=== PATIENT | female | born 1975 | race Caucasian/White ===

== ENCOUNTER → 2020-03-26 09:02 | Outpatient (CLI) | payer OTHER, SELFPAY ==
--- NOTE | 2020-03-26 | DI.MRI.S_ITS ---
PROCEDURE: MR KNEE RT WO CON INDICATIONS: Pain in right knee TECHNIQUE: Noncontrast sagittal PD fast spin echo and T2 fast spin echo with fat saturation, sagittal 3-D FLASH with fat saturation; coronal T1 spin echo and PD fast spin echo with fat saturation, and axial PD fast spin echo with fat saturation through the knee. COMPARISON: [facility] [place], CR, XR KNEE ARTHRITIC SERIES BI, 03/12/2020, 16:42. [facility] Outside Film, CR, XR KNEE 3 VIEWS RIGHT, 01/21/2020, 14:27. [facility] Outside Film, CR, XR KNEE 3 VIEWS RIGHT, 01/15/2020, 22:57. FINDINGS: Image quality: Excellent. Menisci: The medial and lateral menisci demonstrate normal morphology and internal signal. The meniscal root ligaments appear intact. Cruciate ligaments: The anterior and posterior cruciate ligaments appear intact. Medial structures: The medial collateral ligament appears intact. The posterior oblique ligament, semimembranosus tendon insertions, oblique popliteal ligament, and meniscocapsular junction appear intact. Visualized portions of the pes anserinus tendons appear normal. No abnormal bursal fluid. Lateral structures: The lateral collateral ligament, long and short heads of the biceps femoris tendon appear intact. The popliteus tendon appears normal; the popliteofibular ligament appears intact. The posterosuperior and anteroinferior popliteomeniscal fascicles appear intact. The arcuate and fabellofibular ligaments appear intact, on either side of the lateral inferior geniculate artery. Iliotibial band appears normal. Anterior structures: The quadriceps and patellar tendons appear intact. There is mild lateral subluxation of the patella. No edema in the infrapatellar fat pad. No secondary signs of transient patellar dislocation. No femoral trochlear dysplasia or ventral trochlear prominence. Bones and cartilage: No bone marrow contusions or fractures. There is thinning and fissuring of the patellar and medial femoral condyle articular cartilage. There is an approximately 50% thickness focal articular cartilage defect at the apex of the patella. Small area of reactive subchondral edema noted in the apex of the patella deep to the articular cartilage defect. The cartilage of the medial lateral femorotibial compartment appears normal in thickness. Joint space: There is a large joint effusion. No popliteal cyst. Normal appearing synovial plicae are incidentally noted. IMPRESSION: 1. No evidence of ligament or meniscus tear. 2. Degenerative changes involving the patellar and medial femoral condyle articular cartilage with focal articular cartilage defect at the patellar apex. 3. Mild lateral subluxation of the patella without signs of patellar maltracking or transient lateral dislocation. 4. Large joint effusion. Dictated by: Janet Houston MD, PhD on 03/26/2020 at 12:49 Approved by: Janet Houston MD, PhD on 03/27/2020 at 15:06
== END ==
PROVIDERS: PCP Internal Medicine; Referring Provider Orthopaedic Surgery; Visit Provider Orthopaedic Surgery
DX: M25.561 Pain in right knee (principal); M25.461 Effusion, right knee
CPT/HCPCS: 73721

== ENCOUNTER → 2020-04-15 08:16 | Outpatient (CLI) | payer OTHER, SELFPAY ==
[2020-04-15 09:57] LABS: Add Manual Diff / Slide Review NO; Basophils Absolute Auto 0 /uL (0-100); Eosinophils Absolute Auto 0 /uL (0-450); Eosinophils Percent Auto 0.8 % (2-4); Hematocrit 32.6 % (36-46); Hemoglobin 10.6 g/dL (12.0-16.0); Lymphocytes Absolute Auto 1300 /uL (1100-4500); Lymphocytes Percent Auto 37.6 % (25-40); Mean Corpuscular HGB Conc 32.6 % (30-36); Mean Corpuscular Hemoglobin 25.5 PG (26-34); Mean Corpuscular Volume 78.3 fL (80-100); Monocytes Absolute Auto 300 /uL (0-900); Neutrophils Absolute Auto 1800 /uL (1500-7000); Neutrophils Percent Auto 52.6 % (50-75); Platelet Count 218 X10^3/uL (150-400); Red Blood Cell Count 4.16 X10^6/uL (4.0-5.2); Red Cell Distribution Width 15.7 % (11.6-14.8); White Blood Cell Count 3.3 X10^3/uL (4.5-11.0)
[2020-04-15 10:53] LABS: Alanine Aminotransferase 14 IU/L (<35); Albumin 4.1 g/dL (3.5-5.0); Albumin Globulin Ratio 1.6 (1.0-2.8); Alkaline Phosphatase 54 U/L (38-126); Aspartate Aminotransferase 28 IU/L (14-36); BUN Creatinine Ratio 7.8 (6-22); Bilirubin Total 0.1 mg/dL (0.2-1.3); Blood Urea Nitrogen 5 mg/dL (7-17); Calcium 8.9 mg/dL (8.4-10.2); Carbon Dioxide 30 mmol/L (22-32); Chloride 103 mmol/L (98-107); Cholesterol 146 mg/dL (140-199); Estimated Glomerular Filt Rate > 60.0 mL/min (>60); Globulin 2.6 g/dL (1.7-4.1); Glucose 87 mg/dL (70-100); HDL Cholesterol 32 mg/dL (40-60); HEMOLYSIS < 15 (0-50); LDL Cholesterol Calculated 83 mg/dL (<100); Potassium 4.1 mmol/L (3.4-5.1); Sodium 135 mmol/L (137-145); Total Protein 6.7 g/dL (6.3-8.2); Triglycerides 154 mg/dL (35-150)
[2020-04-15 11:10] LABS: Erythrocyte Sedimentation Rate 6 MM/HR (0-20)
[2020-04-15 11:18] LABS: C-Reactive Protein Quant < 0.5 mg/dL (<1.0); Rheumatoid Factor < 8.6 IU/mL (<12.0)
[2020-04-15 11:21] LABS: TSH w/ Reflex to FT4 1.42 uIU/mL (0.47-4.68)
[2020-04-16 17:57] LABS: HEMOLYSIS < 15 (0-50); Iron 25 ug/dL (37-170)
[2020-04-16 18:08] LABS: Percent Iron Saturation 6 % (15-50); Total Iron Binding Capacity 390 ug/dL (265-497); Transferrin 277 mg/dL (206-381)
[2020-04-17 14:58] LABS: ANA Screen, IFA Negative (.)
== END ==
PROVIDERS: PCP Internal Medicine; Referring Provider Internal Medicine; Visit Provider Internal Medicine
DX: G43.709 Chronic migraine without aura, not intractable, without status migrainosus (principal); M06.9 Rheumatoid arthritis, unspecified; R32 Unspecified urinary incontinence; Z13.1 Encounter for screening for diabetes mellitus; Z13.220 Encounter for screening for lipoid disorders; Z13.6 Encounter for screening for cardiovascular disorders; D64.9 Anemia, unspecified
CPT/HCPCS: 36415; 80053; 80061; 83540; 83550; 84443; 85025; 85651; 86038; 86140; 86430

== ENCOUNTER → 2020-06-05 11:37 | Outpatient (CLI) | payer OTHER, SELFPAY ==
--- NOTE | 2020-06-05 11:40 | DI.MG.S_ITS ---
BILATERAL DIGITAL SCREENING MAMMOGRAM 3D/2D WITH CAD: 06/05/2020 CLINICAL: Routine screening. Comparison is made to exams dated: 09/20/2013 mammogram and 07/17/2012 mammogram - [facility]. The tissue of both breasts is heterogeneously dense. This may lower the sensitivity of mammography. Current study was also evaluated with a Computer Aided Detection (CAD) system. There are grouped fine calcifications in the left breast anterior depth lateral region seen on the craniocaudal view only. No other significant masses, calcifications, or other findings are seen in either breast. IMPRESSION: INCOMPLETE: NEEDS ADDITIONAL IMAGING EVALUATION The grouped fine calcifications in the left breast are indeterminate. Spot magnification views as well as additional views with possible ultrasound are recommended. This exam was interpreted at Station ID: [id number]. NOTE: For mammograms, a report in lay terms will be sent to the patient. Approximately 15% of breast malignancies will not be visualized mammographically. In the management of a palpable breast mass, a negative mammogram must not discourage biopsy of a clinically suspicious lesion. Electronically Signed By: Iraj Roland acr/:06/05/2020 13:53:32 letter sent: Additional Imaging Needed ACR BI-RADS Category 0: Incomplete 3340F
== END ==
PROVIDERS: PCP Internal Medicine; Referring Provider Internal Medicine; Visit Provider Internal Medicine
DX: Z12.31 Encounter for screening mammogram for malignant neoplasm of breast (principal)
CPT/HCPCS: 77063; 77067

== ENCOUNTER → 2020-06-20 08:16 | Outpatient (CLI) | payer OTHER, SELFPAY ==
--- NOTE | 2020-06-20 | DI.MG.S_ITS ---
UNILATERAL LEFT DIGITAL DIAGNOSTIC MAMMOGRAM 3D/2D WITH ADDITIONAL VIEWS: 06/20/2020 CLINICAL: Additional evaluation requested from prior study. Comparison is made to exams dated: 06/05/2020 mammogram - [facility], 09/11/2015 ultrasound, 09/20/2013 mammogram, and 07/17/2012 mammogram - [facility]. The tissue of left breast is heterogeneously dense. This may lower the sensitivity of mammography. The previously described grouped fine calcifications in the left breast anterior depth lateral region seen on the craniocaudal view only are no longer seen and not confirmed on today's additional views. This likely represented artifact. No other significant masses or calcifications are seen in the breast. IMPRESSION: BENIGN There is no mammographic evidence of malignancy. A 1 year screening mammogram is recommended. Additionally, patient has an elevated lifetime risk for breast cancer of greater than 20%. Recommend consideration for screening breast MRI as an adjunct to screening mammography. Findings and recommendations were conveyed to the patient during today's evaluation. This exam was interpreted at Station ID: [id number]. NOTE: For mammograms, a report in lay terms will be sent to the patient. Approximately 15% of breast malignancies will not be visualized mammographically. In the management of a palpable breast mass, a negative mammogram must not discourage biopsy of a clinically suspicious lesion. Electronically Signed By: Rito Fontana M.D. aty/:06/20/2020 10:33:38 letter sent: Normal Exam ACR BI-RADS Category 2: Benign Finding(s) 3342F
--- NOTE | 2020-06-20 08:17 | DI.MRI.S_ITS ---
PROCEDURE: MR SHOULDER LT WO/W CON INDICATIONS: Mass high in the left axilla suspect intramuscular mass TECHNIQUE: Noncontrast oblique coronal T1 spin echo and T2 fast spin echo with fat saturation, oblique sagittal T1 spin echo and T2 fast spin echo with fat saturation, axial T1 spin echo and T2 fast spin echo with fat saturation through the shoulder. Post-contrast oblique coronal, oblique sagittal, and axial T1 spin echo with fat saturation through the shoulder. COMPARISON: None. FINDINGS: Image quality: Excellent. Rotator cuff: There is mild supraspinatus and infraspinatus tendinosis. The teres minor and subscapularis tendons are intact. There is no significant rotator cuff muscle atrophy. Bones and bursae: No acute trabecular bone injury is seen. No suspicious osseous enhancement or intraosseous lesion is seen. Mild acromioclavicular degenerative changes are present. There is trace subacromial/subdeltoid bursal fluid. No significant glenohumeral joint effusion is present. Capsule and soft tissues: No displaced labral tear is seen. There is mild tendinosis of the intra-articular portion of the biceps long head tendon. There is mild partial effacement of the fat in the rotator interval. There is mild thickening of the anterior band of the inferior glenohumeral ligament. A few normal-appearing lymph nodes are seen in the left axilla. No suspicious enhancing soft tissue mass is identified. IMPRESSION: 1. No suspicious enhancing soft tissue or osseous mass is seen in the shoulder. 2. Mild supraspinatus and infraspinatus tendinosis. 3. Mild tendinosis of the biceps long head tendon. 4. Mild acromioclavicular joint osteoarthrosis. 5. Small nonspecific subacromial/subdeltoid bursal effusion or bursitis. 6. Partial effacement of the rotator interval fat and mild thickening of the inferior glenohumeral ligament are nonspecific, but can be seen in the setting of the clinical syndrome of adhesive capsulitis. Dictated by: Milan Walters M.D. on 06/20/2020 at 9:25 Approved by: Milan Walters M.D. on 06/20/2020 at 9:36
== END ==
PROVIDERS: PCP Internal Medicine; Referring Provider Specialist; Visit Provider Specialist
DX: R22.32 Localized swelling, mass and lump, left upper limb (principal); M19.012 Primary osteoarthritis, left shoulder; R92.8 Other abnormal and inconclusive findings on diagnostic imaging of breast; R92.1 Mammographic calcification found on diagnostic imaging of breast
CPT/HCPCS: 73223; 77065; G0279

== ENCOUNTER → 2020-07-02 11:09 | Outpatient (CLI) | payer OTHER, SELFPAY ==
[2020-07-02 12:14] LABS: Hematocrit 35.3 % (36-46); Hemoglobin 11.4 g/dL (12.0-16.0); Mean Corpuscular HGB Conc 32.4 % (30-36); Mean Corpuscular Hemoglobin 25.4 PG (26-34); Mean Corpuscular Volume 78.6 fL (80-100); Platelet Count 253 X10^3/uL (150-400); Red Blood Cell Count 4.49 X10^6/uL (4.0-5.2); Red Cell Distribution Width 16.3 % (11.6-14.8); White Blood Cell Count 5.3 X10^3/uL (4.5-11.0)
[2020-07-02 12:35] LABS: HEMOLYSIS < 15 (0-50); Iron 46 ug/dL (37-170)
[2020-07-02 12:51] LABS: Percent Iron Saturation 12 % (15-50); Total Iron Binding Capacity 396 ug/dL (265-497); Transferrin 296 mg/dL (206-381)
[2020-07-02 12:54] LABS: Free T4, Direct Thyroxine 0.94 ng/dL (0.78-2.19); Prolactin 9.8 ng/mL (3.0-18.6)
[2020-07-02 13:08] LABS: Thyroid Stimulating Hormone 1.29 uIU/mL (0.47-4.68)
[2020-07-02 13:11] LABS: Ferritin 7 ng/mL (6-137)
[2020-07-02 13:26] LABS: Vitamin B12 728 pg/mL (239-931)
[2020-07-02 15:06] LABS: Bacteria Urine None Seen; RBC Urine None Seen (0-5/HPF); WBC Urine None Seen (0-5/HPF)
[2020-07-02 16:11] LABS: Appearance Urine UA CLEAR; Bilirubin Urine UA NEGATIVE (NEGATIVE); Glucose Urine UA NEGATIVE (Negative); Ketones Urine UA NEGATIVE (NEGATIVE); Leukocyte Esterase Urine UA NEGATIVE (NEGATIVE); Nitrite Urine UA NEGATIVE (Negative); Occult Blood Urine UA NEGATIVE (Negative); Protein Urine UA NEGATIVE (Negative); Specific Gravity Urine UA <=1.005 (1.000-1.035); Urobilinogen Urine UA 0.2 E.U./dL (0.2)
[2020-07-02 17:14] LABS: pH Urine UA 6.5 (4.5-8.0)
[2020-07-02 17:15] LABS: Color Urine UA Straw; Culture Indicated Urine Cult Not Indicated; Squamous Epithelial Cell Urine 0-1 /HPF (0-5/HPF)
== END ==
PROVIDERS: Obstetrics & Gynecology; PCP Nurse Practitioner Family; Referring Provider Nurse Practitioner Family; Visit Provider Nurse Practitioner Family
DX: D50.9 Iron deficiency anemia, unspecified (principal); R53.83 Other fatigue; R10.2 Pelvic and perineal pain; R10.9 Unspecified abdominal pain; N64.52 Nipple discharge; R30.0 Dysuria
CPT/HCPCS: 36415; 81001; 82607; 82728; 83540; 83550; 84146; 84439; 84443; 85027

== ENCOUNTER → 2020-07-24 08:20 | Outpatient (CLI) | payer OTHER, SELFPAY ==
--- NOTE | 2020-07-24 08:21 | DI.US.S_ITS ---
PROCEDURE: US PELVIC COMPLETE INDICATIONS: PELVIC AND PERINEAL PAIN TECHNIQUE: Real-time scanning was performed of the pelvic organs, with image documentation. Additional endovaginal scanning was necessary due to incomplete visualization of the adnexal and endometrial structures by transabdominal scanning. COMPARISON: None. FINDINGS: Uterus: Uterus is normal in size at 7.9 x 5.8 x 4.9 cm. Few incidental myometrial cysts noted measuring less than 3 mm. The endometrium measures 4.6 mm in combined thickness. Small nabothian cysts noted in the cervix measures 6 mm. Ovaries: Both ovaries appropriate in size vascularity without evidence of torsion. On the left, there is a thick-walled septated cyst measuring overall 1.5 x 1.6 x 1.4 cm. No mural nodule Other: No pathologic free abdominal or pelvic fluid. Small little physiologic fluid noted in the left adnexa. IMPRESSION: 1. Small thick-walled septated cyst noted in the left ovary. Consider six-month follow-up to assure resolution. Dictated by: Zeb Macias M.D. on 07/24/2020 at 15:03 Approved by: Zeb Macias M.D. on 07/24/2020 at 15:16
--- NOTE | 2020-07-24 08:28 | DI.US.S_ITS ---
PROCEDURE: US ABDOMEN COMPLETE INDICATIONS: ABDOMINAL DISCOMFORT TECHNIQUE: Real-time scanning was performed of the abdominal and retroperitoneal organs, with image documentation. COMPARISON: None. FINDINGS: Liver: Liver is normal in size and homogeneous in echotexture. Gallbladder: The gallbladder appears normal Biliary ducts: Not well seen due to bowel gas. Pancreas: Visualized portions of the pancreas are sonographically normal. Spleen: Spleen is normal in size and homogeneous in echotexture. Kidneys: Kidneys are normal in size and echotexture. Right kidney measures 9.1 cm long; left kidney measures 9.9 cm long. No hydronephrosis or nephrolithiasis. No solid masses. Scattered punctate foci of echogenicity are seen within the renal parenchyma, likely reflecting medullary calcinosis or vascular calcifications. Definite collecting system calculi are not found. Aorta: Visualized aorta is normal in caliber at less than 3 cm. Iliacs: Proximal common iliac arteries are normal in caliber at less than 2.5 cm. IVC: Intrahepatic inferior vena cava is patent. Miscellaneous: No free abdominal fluid. IMPRESSION: Bowel gas is relatively prominent in this patient reducing quality of visualization. No definite acute disease found. Scattered punctate echogenic foci are seen within the renal parenchyma most likely representing small vascular calcifications or medullary calcinosis. No acute disease. Dictated by: Hi Doherty M.D. on 07/24/2020 at 13:15 Approved by: Hi Doherty M.D. on 07/24/2020 at 13:27
== END ==
PROVIDERS: PCP Nurse Practitioner Family; Referring Provider Nurse Practitioner Family; Visit Provider Nurse Practitioner Family
DX: R10.2 Pelvic and perineal pain (principal); R10.9 Unspecified abdominal pain; N83.202 Unspecified ovarian cyst, left side
CPT/HCPCS: 76700; 76830; 76856

== ENCOUNTER → 2020-07-28 07:21 | Outpatient (CLI) | payer OTHER, SELFPAY ==
--- NOTE | 2020-07-28 07:22 | DI.MRI.S_ITS ---
PROCEDURE: MR HEAD/BRAIN WO CON INDICATIONS: excrutiating orgasm headache TECHNIQUE: Noncontrast axial T1 spin echo, axial T2 fast spin echo, sagittal and axial FLAIR, coronal T2 fast spin echo, axial gradient echo, axial diffusion and ADC through the brain. COMPARISON: None. FINDINGS: Image quality: Excellent. CSF Spaces: Basal cisterns are patent. No extra-axial fluid collections. Ventricles are normal in size and shape. Brain: No intracranial masses or hemorrhage. Homogeneous T2 hyperintense presumed cystic lesions involving the medial temporal lobe/cavernous sinuses measuring 1.5 x 0.9 cm on the right and 1.5 x 0.8 cm on the left on coronal pulse sequences. Statistically, these are probably incidental arachnoid cysts. If clinically warranted, contrast enhanced study could be obtained. Ruiz/white matter interface is normal. Brainstem appears normal. Diffusion-weighted images demonstrate no acute ischemic insult. No chronic ischemic insults. Normal intravascular flow voids are present. Skull and face: Calvarium has normal marrow signal. Orbits appear normal. Sinuses: Sinuses and mastoids are clear. IMPRESSION: Presumed incidentally noted small arachnoid cysts involving the cavernous sinus/medial temporal lobes bilaterally. No evidence of acute ischemia. No acute intracranial signal abnormality . Dictated by: Wilver Nails M.D. on 07/28/2020 at 9:21 Approved by: Wilver Nails M.D. on 07/28/2020 at 10:22
== END ==
PROVIDERS: PCP Nurse Practitioner Family; Referring Provider Nurse Practitioner Family; Visit Provider Nurse Practitioner Family
DX: G44.82 Headache associated with sexual activity (principal)
CPT/HCPCS: 70551

== ENCOUNTER → 2020-08-20 16:14 | Outpatient (CLI) | payer OTHER, SELFPAY ==
[2020-08-20 17:40] LABS: Progesterone, Total 1.46 ng/mL
[2020-08-20 17:56] LABS: Estradiol, Total 179.6 pg/mL
[2020-08-26 05:11] LABS: Percent Free Testosterone 2.48 % (0.50-2.80); Testosterone Free 0.85 ng/dL (0.10-0.85); Testosterone Total 34.1 ng/dL (.)
== END ==
PROVIDERS: PCP Nurse Practitioner Family; Referring Provider Obstetrics & Gynecology; Visit Provider Obstetrics & Gynecology
DX: Z13.9 Encounter for screening, unspecified (principal); N95.1 Menopausal and female climacteric states
CPT/HCPCS: 36415; 82670; 84144; 84402; 84403

== ENCOUNTER → 2020-08-27 08:22 | Outpatient (CLI) | payer OTHER, SELFPAY ==
[2020-08-27 10:21] LABS: Creatinine, Serum (CRCL) 0.61 mg/dL (0.52-1.04)
[2020-08-27 10:26] LABS: Collection Time Urine 24 Hours; Patient Height Urine 58 inches; Patient Weight Urine 130 lbs; Total Volume Urine 4500 mL
[2020-08-27 11:00] LABS: Creat Clearance, Corrected 80.9 mL/MIN; Creatinine Clearance Urine 70.7 mL/MIN; Creatinine Urine Random 13.8 mg/dL
== END ==
PROVIDERS: PCP Nurse Practitioner Family; Referring Provider Psychiatry & Neurology Neurology; Visit Provider Psychiatry & Neurology Neurology
DX: Z13.9 Encounter for screening, unspecified (principal)
CPT/HCPCS: 82575

== ENCOUNTER → 2020-08-29 12:49 | Outpatient (CLI) | payer OTHER, SELFPAY ==
--- NOTE | 2020-08-29 | DI.CT.S_ITS ---
PROCEDURE: CT ANGIO HEAD INDICATIONS: Headache associated with sexual activity TECHNIQUE: Precontrast 4.5 mm thick angled axial sections acquired from the foramen magnum to the vertex. After the administration of intravenous contrast, 1 mm thick sections acquired through the [place]. Postcontrast 4.5 mm thick sections then re-acquired from the foramen magnum to the vertex. 10 mm thick [id number] (MIP) reformats were acquired of the central intracranial vasculature. For radiation dose reduction, the following was used: automated exposure control, adjustment of mA and/or kV according to patient size. COMPARISON: [facility], , MR HEAD/BRAIN WO CON, 07/28/2020, 7:35. FINDINGS: Image quality: Excellent. Anterior circulation: Intracranial internal carotid arteries are normal in size and flow. The flow within the paired anterior cerebral arteries is normal and symmetric. The flow within the middle cerebral arteries is normal and symmetric. The anterior communicating artery is seen. No aneurysms are seen. Posterior circulation: Visualized portions of the vertebral arteries demonstrate normal caliber, and join to form a normal appearing basilar artery. Flow within the posterior cerebral arteries is normal and symmetric. No aneurysms are seen. Left vertebral artery dominance is present. CSF spaces: Ventricles are normal in size and shape. Basal cisterns are patent. No extra-axial fluid collections. Brain: No midline shift. No intracranial bleeds or masses. Ruiz-white matter interface appears intact. Skull and face: Calvarium and facial bones appear intact, without suspicious lesions. Sinuses: Visualized sinuses and mastoids are clear. IMPRESSION: 1. No acute intracranial process. 2. No areas of hemodynamically significant stenosis, vascular occlusion or aneurysmal dilation within the anterior or posterior circulation. Dictated by: Celine Fink M.D. on 08/29/2020 at 15:54 Approved by: Celine Fink M.D. on 08/29/2020 at 15:56
== END ==
PROVIDERS: PCP Nurse Practitioner Family; Referring Provider Psychiatry & Neurology Neurology; Visit Provider Psychiatry & Neurology Neurology
DX: G44.82 Headache associated with sexual activity (principal)
CPT/HCPCS: 70496; Q9967

== ENCOUNTER → 2020-09-23 10:41 | Outpatient (CLI) | payer OTHER, SELFPAY ==
--- NOTE | 2020-09-23 10:43 | DI.RAD.S_ITS ---
PROCEDURE: XR CERVICAL SPINE 2V OR 3V INDICATIONS: cervical neck pain TECHNIQUE: 3 view(s) of the cervical spine were acquired. COMPARISON: None. FINDINGS: Bones: No fractures or dislocations to the T1 level. The lateral masses of C1 appear intact on the odontoid view. No suspicious bony lesions. Soft tissues: No prevertebral soft tissue swelling. IMPRESSION: Normal x-ray of the cervical spine. Dictated by: Iraj Roland M.D. on 09/23/2020 at 12:18 Approved by: Iraj Roland M.D. on 09/23/2020 at 12:20
== END ==
PROVIDERS: PCP Nurse Practitioner Family; Referring Provider Family Medicine; Visit Provider Family Medicine
DX: M54.2 Cervicalgia (principal); M62.838 Other muscle spasm
CPT/HCPCS: 72040

== ENCOUNTER 2020-10-08 15:07 | Emergency (ER) | payer OTHER, SELFPAY ==
[2020-10-08 15:28] VITALS: BP 133/82; PULSE 70; RESP 16; TEMP 36.5; O2SAT 98; BMI 26.1
--- NOTE | 2020-10-08 16:19 | DI.US.S_ITS ---
PROCEDURE: US PERIPH VENOUS LOW EXTREM LT INDICATIONS: Recent travel, L Leg discomfort TECHNIQUE: Real-time imaging, as well as color and pulse Doppler interrogation, were performed of the lower extremity deep veins from the inguinal ligament to the popliteal fossa. COMPARISON: None. FINDINGS: The common femoral, femoral and popliteal veins are normally compressible, and free of intraluminal thrombus. Color and pulse Doppler demonstrate normal phasic intraluminal flow. There is normal augmentation response to distal compression maneuver. IMPRESSION: Negative for deep venous thrombosis. Dictated by: Ren Liu M.D. on 10/08/2020 at 16:09 Approved by: Ren Liu M.D. on 10/08/2020 at 16:13
--- NOTE | 2020-10-08 18:27 | ED.EXTPRO ---
HPI - Extremity Problem General Chief complaint: Extremity Problem,Nontraumatic Stated complaint: barometric comp., swollen leg-L, weird feeling Time Seen by Provider: 10/08/20 18:02 Source: patient Mode of arrival: Ambulatory Limitations: no limitations History of Present Illness HPI Narrative: Patient is a 45-year-old female who has history of celiac disease and anemia presenting today with left leg pain. She flew to and from [facility] in 5 days returning 1 week ago. She had significant swelling of both legs immediately after the flight. She says the return flight home was least 14 hours on the airplane. She tried to get up and walk probably not much as she should. Her right leg swelling improved but she continued to have pain and discomfort in her left. Swelling today in her left leg is not significant. She feels little dizzy and lightheaded when she stands. [facility]. Denies any chest pain or shortness of breath. No prior history of DVTs. Related Data Home Medications Medication Instructions Recorded Confirmed rizatriptan 10 mg disintegrating 10 mg PO Q2-4H PRN tab 03/21/20 09/23/20 tablet cholecalciferol (vitamin D3) 10 10 mcg PO DAILY 06/05/20 09/23/20 mcg (400 unit) capsule Previous Rx's Medication Instructions Recorded cyclobenzaprine 5 mg tablet 5 mg PO BEDTIME PRN #14 tab 09/23/20 prednisone 20 mg tablet 40 mg PO DAILY #10 tab 09/23/20 Allergies Allergy/AdvReac Type Severity Reaction Status Date / Time gluten AdvReac Severe Makes her Verified 10/08/20 15:28 really sick procaine [From Novocain] AdvReac Severe Heart Verified 10/08/20 15:28 Races, Shaking, Severe Nausea Pain medication AdvReac Severe Heart Uncoded 09/23/20 10:15 racing, shaking, Severe nausea. Does not like taking. Review of Systems Review of Systems Narrative: GENERAL: Denies chills, fatigue, malaise, fever, sweats, travel HEENT: Denies sinus pain, ear pain, sore throat, difficulty swallowing, neck pain RESPIRATORY: Denies dyspnea, cough, wheezing, hemoptysis, sputum. CARDIOVASCULAR: Denies chest pain, palpitations, orthopnea, edema GASTROINTESTINAL: Denies nausea, vomiting, abdominal pain, diarrhea, constipation, melena. : Denies dysuria, frequency, incontinence, hematuria, urinary retention, flank pain. MUSCULOSKELETAL: See HPI SKIN: No rash, no erythema, no pruritus NEUROLOGIC: Denies weakness, dizziness, headache, numbness, change in speech, confusion PSYCHIATRIC: No concerning psychosocial issues. 12 point review of systems is negative except for those stated above and HPI Patient History Medical History (Updated 10/08/20 @ 19:28 by Luli Pagan DO) Abnormal chest xray (~2000) Abnormal Pap smear of cervix (~2004) Anemia Arachnoid cyst Astigmatism of right eye Celiac disease Cervical spine pain Chicken pox (~1977) Chronic migraine Fatigue Foot pain Frequent UTI (~1999) Headache associated with orgasm (06/2020) Hemorrhoid (~1993) Iron deficiency anemia Irregular menstrual cycle Knee problem Migraines (~2011) Ovarian cyst (07/2020) PTSD (post-traumatic stress disorder) (~2009) Raynauds disease Rheumatoid arthritis (~2000) Tinnitus Urinary incontinence (~2004) Wears glasses Surgical History (Updated 09/15/20 @ 16:35 by Umair Gamnio MD) Anesthesia History of section (~2014) History of removal of cyst (~2002) S/P left knee surgery (~2012) S/P tubal ligation (~2008) Family History Father Hypertension Hyperlipidemia Mother Skin cancer Diabetes mellitus Hypertension Hyperlipidemia History of Crohn's disease History of IBS Brother Hyperlipidemia Hypertension History of heart attack Sister Lymphoma of breast Hyperlipidemia Hypertension Osteoporosis Sister Thyroid cancer Celiac disease Grandmother History of blood clots Social History marital status: household members: spouse and children Smoking Status: Former smoker second hand exposure: No alcohol intake: never substance use type: does not use Smoking Status: Former smoker alcohol intake frequency: 0-2 drinks per day Substance Use Type: does not use Exam Initial Vital Signs Initial Vital Signs: Vital Signs Temperature 97.7 F 10/08/20 15:28 Pulse Rate 70 10/08/20 15:28 Respiratory Rate 16 10/08/20 15:28 Blood Pressure 133/82 10/08/20 15:28 Pulse Oximetry 98 10/08/20 15:28 GENERAL: Alert well-appearing 45-year-old female and in no acute distress. HEENT: Head atraumatic,EOMI, pupils reactive, face symmetric, moist mucous membranes CARDIOVASCULAR: Regular rate and rhythm without murmurs, rubs or gallops. RESPIRATORY: Breath sounds equal bilaterally, no wheezes rales or rhonchi. ABDOMEN: Soft, nontender. Normoactive bowel sounds all 4 quadrants. No guarding or rebound. EXTREMITIES: Mild discomfort in the calf but no significant swelling on the left. No erythema. Full range of motion of the knee. NEUROLOGICAL: Alert and oriented x4. SKIN: Warm, dry, no laceration, no petechiae, no rashes or lesions. Scores Wells' Criteria for DVT Active Cancer (Treatment within 6 months): No Bedridden recently >3 days or major surgery within 4 weeks: No Calf Swelling >3cm compared to other leg: No Collateral (nonvericose) superficial veins present: No Entire leg swollen: No Localized tenderness along the deep vein system: Yes Pitting edema, confined to symtomatic leg: No Paralysis, paresis, or recent plaster immobilization of ext: No Previously documented DVT: No Alternative dx to DVT as likely or more likely: No Wells' criteria for DVT: 1 Course Orders Ordered: ED Orders 10/08/20 16:19 US periph venous low extrem lt Stat 10/08/20 18:50 Complete Blood Count AUTO DIFF Stat D Dimer Stat Vital Signs Vital signs: Vital Signs - 8 hr 10/08/20 18:57 Pulse Rate 68 Respiratory Rate 18 Blood Pressure 110/70 Pulse Oximetry 100 MDM - Extremity (Nontraumatic) Lab Data Result diagrams: 10/08/20 18:50 Labs: Lab Results 10/08/20 10/08/20 Range/Units 18:50 18:50 WBC 5.3 (4.5-11.0) X10^3/uL RBC 4.16 (4.0-5.2) X10^6/uL Hgb 10.9 L (12.0-16.0) g/dL Hct 33.1 L (36-46) % MCV 79.5 L (80-100) fL MCH 26.2 (26-34) PG MCHC 32.9 (30-36) % RDW 16.9 H (11.6-14.8) % Plt Count 241 (150-400) X10^3/uL Neut % (Auto) 59.0 (50-75) % Lymph % (Auto) 30.9 (25-40) % Franklin % (Auto) 7.6 (3-14) % Eos % (Auto) 1.3 L (2-4) % Baso % (Auto) 1.2 (0-2) % Neut # (Auto) 3100 (8965-1905) /uL Lymph # (Auto) 1600 (2931-1209) /uL Franklin # (Auto) 400 (0-900) /uL Eos # (Auto) 100 (0-450) /uL Baso # (Auto) 100 (0-100) /uL D-Dimer < 200 (<230) ng/mL Imaging Data US - DVT: Radiologist's Impression: PROCEDURE: US PERIPH VENOUS LOW EXTREM LT INDICATIONS: Recent travel, L Leg discomfort TECHNIQUE: Real-time imaging, as well as color and pulse Doppler interrogation, were performed of the lower extremity deep veins from the inguinal ligament to the popliteal fossa. COMPARISON: None. FINDINGS: The common femoral, femoral and popliteal veins are normally compressible, and free of intraluminal thrombus. Color and pulse Doppler demonstrate normal phasic intraluminal flow. There is normal augmentation response to distal compression maneuver. IMPRESSION: Negative for deep venous thrombosis. Dictated by: Ren Liu M.D. on 10/08/2020 at 16:09 Approved by: Ren Liu M.D. on 10/08/2020 at 16:13 [facility] Narrative Medical decision making narrative: Initially ultrasound was ordered and is found to be negative however patient's story is certainly concerning and she does have significant risk factor of long airplane flight. D-dimer was added and is found to be negative. She also has a low Wells score. At this time I have low suspicion for DVT. However still command mesh compression socks the whole leg ultrasound be repeated next week if pain continues. At this time she understands and agrees. Discharge Plan Departure Patient Disposition: Home Clinical Impression: Left leg pain Instructions: DI for Leg Pain Activity Restrictions/Additional Instructions: *You have been diagnosed with left leg pain *What to do: At this time I do recommend that he wear compression socks and have repeat whole leg ultrasound done next week your primary care provider. Ultrasound today and blood work today are negative. I do not think it beneficial to treat you with blood thinners. This may be more of a sprain *Continue to take medications as directed *Follow up with your primary care provider in 2-3 days *Return to ER if you should have increasing chest pain shortness of breath, swelling, pain or any new, worsening or concerning symptoms Prescriptions: No Action prednisone 20 mg tablet 40 mg PO DAILY Qty: 10 RF: 0 cyclobenzaprine 5 mg tablet 5 mg PO BEDTIME PRN (Reason: muscle spasm) Qty: 14 RF: 0 rizatriptan 10 mg tablet,disintegrating 10 mg PO Q2-4H PRN (Reason: migraine headache) RF: 0 cholecalciferol (vitamin D3) 10 mcg (400 unit) capsule 10 mcg PO DAILY RF: 0 Referrals: Issa Mansfield ARNP [Primary Care Provider] -
[2020-10-08 18:57] VITALS: BP 110/70; PULSE 68; RESP 18; O2SAT 100
[2020-10-08 18:59] LABS: Add Manual Diff / Slide Review NO; Basophils Absolute Auto 100 /uL (0-100); Basophils Percent Auto 1.2 % (0-2); Eosinophils Absolute Auto 100 /uL (0-450); Eosinophils Percent Auto 1.3 % (2-4); Hematocrit 33.1 % (36-46); Hemoglobin 10.9 g/dL (12.0-16.0); Lymphocytes Absolute Auto 1600 /uL (1100-4500); Lymphocytes Percent Auto 30.9 % (25-40); Mean Corpuscular HGB Conc 32.9 % (30-36); Mean Corpuscular Hemoglobin 26.2 PG (26-34); Mean Corpuscular Volume 79.5 fL (80-100); Monocytes Absolute Auto 400 /uL (0-900); Monocytes Percent Auto 7.6 % (3-14); Neutrophils Absolute Auto 3100 /uL (1500-7000); Platelet Count 241 X10^3/uL (150-400); Red Blood Cell Count 4.16 X10^6/uL (4.0-5.2); Red Cell Distribution Width 16.9 % (11.6-14.8); White Blood Cell Count 5.3 X10^3/uL (4.5-11.0)
[2020-10-08 19:15] LABS: D Dimer < 200 ng/mL (<230)
== END 2020-10-08 19:37 | disposition home or self-care (01) ==
PROVIDERS: Emergency Provider Emergency Medicine; PCP Nurse Practitioner Family
DX: M79.605 Pain in left leg (principal)
CPT/HCPCS: 36415; 85025; 85379; 93971; 99284

== ENCOUNTER → 2020-10-13 09:44 | Outpatient (CLI) | payer OTHER, SELFPAY ==
--- NOTE | 2020-10-13 09:45 | DI.MRI.S_ITS ---
PROCEDURE: MR CERVICAL SPINE WO CON INDICATIONS: neck pain TECHNIQUE: Noncontrast sagittal T1 spin echo and T2 fast spin echo, sagittal STIR, foraminal oblique sagittal T2 fast spin echo, and axial gradient echo or T2 fast spin echo through the cervical spine. COMPARISON: None. FINDINGS: Image quality: Excellent. Alignment and Curvature: There is straightening of normal cervical curvature. Bone Marrow: Marrow demonstrates normal overall signal. Spinal Cord: Visualized spinal cord has normal size and signal. No cerebellar tonsillar herniation. Paraspinous Soft Tissues: No paravertebral masses. Prevertebral soft tissues are normal in thickness. C2-C3: No disc bulge, spinal stenosis or foraminal narrowing. C3-C4: No disc bulge, spinal stenosis or foraminal narrowing. C4-C5: No disc bulge, spinal stenosis or foraminal narrowing. C5-C6: Minimal disc bulge spinal stenosis or narrowing C6-C7: No disc bulge, spinal stenosis or foraminal narrowing. C7-T1: No disc bulge, spinal stenosis or foraminal narrowing. IMPRESSION: 1. Minimal disc bulge at C5-6. Dictated by: Celine Fink M.D. on 10/13/2020 at 15:00 Approved by: Celine Fink M.D. on 10/13/2020 at 15:03
== END ==
PROVIDERS: PCP Nurse Practitioner Family; Referring Provider Family Medicine; Visit Provider Family Medicine
DX: M54.2 Cervicalgia (principal)
CPT/HCPCS: 72141

== ENCOUNTER → 2020-10-14 14:03 | Outpatient (CLI) | payer OTHER, SELFPAY ==
--- NOTE | 2020-10-14 14:03 | DI.RAD.S_ITS ---
PROCEDURE: XR KNEE LT 3V INDICATIONS: left knee pain TECHNIQUE: 3 views of the knee were acquired. COMPARISON: None. FINDINGS: Bones: No fractures or dislocations. No suspicious bony lesions. Mild osteoarthritic degenerative changes noted in all 3 knee compartments. Soft tissues: No joint effusion. No suspicious soft tissue calcifications. IMPRESSION: Mild left knee tricompartmental osteoarthritis. Dictated by: Janet Houston MD, PhD on 10/14/2020 at 15:54 Approved by: Janet Houston MD, PhD on 10/14/2020 at 15:55
== END ==
PROVIDERS: PCP Nurse Practitioner Family; Referring Provider Nurse Practitioner Family; Visit Provider Nurse Practitioner Family
DX: M25.562 Pain in left knee (principal); Z98.890 Other specified postprocedural states; M17.12 Unilateral primary osteoarthritis, left knee
CPT/HCPCS: 73562

== ENCOUNTER → 2020-10-21 10:53 | Outpatient (CLI) | payer OTHER, SELFPAY ==
--- NOTE | 2020-10-21 10:54 | DI.US.S_ITS ---
PROCEDURE: [facility] VENOUS LOW EXTREM LT INDICATIONS: entire left leg, continues to have pain after long flight TECHNIQUE: Real-time imaging, as well as color and pulse Doppler interrogation, were performed of the lower extremity deep veins from the inguinal ligament to the popliteal fossa. COMPARISON: Located Within [facility], , [facility] VENOUS LOW EXTREM LT, 10/08/2020, 15:34. FINDINGS: The common femoral, femoral and popliteal veins are normally compressible, and free of intraluminal thrombus. Color and pulse Doppler demonstrate normal phasic intraluminal flow. There is normal augmentation response to distal compression maneuver. IMPRESSION: No deep venous thrombosis. Dictated by: Celine Fink M.D. on 10/21/2020 at 16:04 Approved by: Celine Fink M.D. on 10/21/2020 at 16:05
== END ==
PROVIDERS: PCP Nurse Practitioner Family; Referring Provider Nurse Practitioner Family; Visit Provider Nurse Practitioner Family
DX: M79.605 Pain in left leg (principal)
CPT/HCPCS: 93971

== ENCOUNTER → 2022-04-08 11:55 | Outpatient (CLI) | payer OTHER, SELFPAY ==
[2022-04-08 12:54] LABS: Cholesterol 165 mg/dL (140-199); HDL Cholesterol 41 mg/dL (40-60); LDL Cholesterol Calculated 94 mg/dL (<100); Triglycerides 149 mg/dL (35-150)
[2022-04-08 13:05] LABS: Free T3, Triiodothyronine Free 3.43 pg/mL (2.77-5.27); Free T4, Direct Thyroxine 1.06 ng/dL (0.78-2.19)
[2022-04-08 13:18] LABS: Thyroid Stimulating Hormone 1.48 uIU/mL (0.47-4.68)
[2022-04-08 16:34] LABS: HIV 1 & 2 Ab/Ag 4th Gen Combo NEGATIVE (NEGATIVE); Hep C Virus Ab w/Reflex Quant NEGATIVE s/c (NEGATIVE)
== END ==
PROVIDERS: PCP Nurse Practitioner; Referring Provider Nurse Practitioner; Visit Provider Nurse Practitioner
DX: Z00.00 Encounter for general adult medical examination without abnormal findings (principal); Z11.4 Encounter for screening for human immunodeficiency virus [HIV]; Z11.59 Encounter for screening for other viral diseases
CPT/HCPCS: 36415; 80061; 84439; 84443; 84481; 86803; 87389

== ENCOUNTER → 2022-11-12 07:59 | Outpatient (CLI) | payer OTHER, SELFPAY ==
[2022-11-12 08:57] LABS: Add Manual Diff / Slide Review NO; Basophils Absolute Auto 0 /uL (0-100); Basophils Percent Auto 0.8 % (0-2); Eosinophils Absolute Auto 100 /uL (0-450); Eosinophils Percent Auto 1.2 % (2-4); Hematocrit 38.6 % (36-46); Hemoglobin 13.2 g/dL (12.0-16.0); Lymphocytes Absolute Auto 1400 /uL (1100-4500); Mean Corpuscular HGB Conc 34.2 % (30-36); Mean Corpuscular Hemoglobin 29.6 PG (26-34); Mean Corpuscular Volume 86.4 fL (80-100); Monocytes Absolute Auto 300 /uL (0-900); Monocytes Percent Auto 7.2 % (3-14); Neutrophils Absolute Auto 3000 /uL (1500-7000); Neutrophils Percent Auto 62.8 % (50-75); Platelet Count 233 X10^3/uL (150-400); Red Blood Cell Count 4.46 X10^6/uL (4.0-5.2); Red Cell Distribution Width 12.6 % (11.6-14.8); White Blood Cell Count 4.8 X10^3/uL (4.5-11.0)
== END ==
PROVIDERS: PCP Nurse Practitioner; Referring Provider Family Medicine; Visit Provider Family Medicine
DX: D50.9 Iron deficiency anemia, unspecified (principal)
CPT/HCPCS: 36415; 85025